=== PATIENT | male | born 1980 | race African-American/Black ===

== ENCOUNTER 2025-03-03 23:53 | Emergency (ER) | payer MEDICAID, OTHER ==
[~2025-03-03] VITALS: Ht 175.3 cm; Wt 79.1 kg
[2025-03-04 00:09] VITALS: BP 102/71; PULSE 85; RESP 17; TEMP 98.1; O2SAT 97
[2025-03-04] MEDS ORDERED: KETOROLAC TROMETH 60MG/2ML VIAL IM ONE (00:15)
[2025-03-04] MEDS ORDERED: HYDROcodone-ACET 10/325MG TAB PO ONE (00:15)
--- NOTE | 2025-03-04 00:54 | DVH ---
EXAMINATION: XY R RIB XRAY INDICATION: Trauma/fall COMPARISON: None TECHNIQUE: Frontal radiograph of the chest and radiographs of the right-sided ribs FINDINGS: No pulmonary consolidation, pleural effusion or pneumothorax. Normal cardiomediastinal silhouette. No displaced right rib fracture noted. IMPRESSION: No abnormality demonstrated.
--- NOTE | 2025-03-04 00:56 | ED.PDOC ---
History of Present Illness HPI Comments 44 y/o M presents with right chest-wall and rib pain s/p mechanical fall and injury. Patient endorses on developing pain after losing his balance and falling onto hard ground, while outside, this evening, which has not improved since. No lost of consciousness or additional injuries endorsed along with any significant cardiac history. Patient denies any shortness of breath, nausea, vomiting, or further associated symptoms. Vital signs were stable on arrival. Chief Complaint: Chest Pain Time Seen by MD: 23:50 Reviewed Notes: Nurses Notes, Medications, Allergies Allergies: Coded Allergies: NO KNOWN ALLERGIES (Unverified , 03/04/25) Information Source: Patient Mode of Arrival: Ambulatory Severity: Moderate Timing: Hours Duration: Since onset Prehospital treatment: None Past Medical History PAST MEDICAL HISTORY: Asthma Surgical History: Denies all surgeries Family History Family History: Reviewed,noncontributory to illness, No family hx of Cancer, No family hx of DM, No family hx of Heart mychal, No family hx of HTN, No family hx ofKidney mychal, No family hx of Liver mychal, No family hx of Lung mychal, No family hx of Stroke Social History Smoker: Non-Smoker Alcohol: Denies ETOH Use Drugs: Denies Drug Use Lives In: Home Constitutional: denies: chills, diaphoresis, fatigue, fever, malaise, sweats, weakness, others EENTM: denies: blurred vision, double vision, ear bleeding, ear discharge, ear drainage, ear pain, ear ringing, eye pain, eye redness, hearing loss, mouth pain, mouth swelling, nasal discharge, nose bleeding, nose congestion, nose pain, photophobia, tearing, throat pain, throat swelling, voice changes, others Respiratory: denies: cough, hemoptysis, orthopnea, SOB at rest, shortness of breath, SOB with excertion, stridor, wheezing, others Cardiovascular: denies: chest pain, dizzy spells, diaphoresis, Dyspnea on exertion, edema, irregular heart beat, left arm pain, lightheadedness, palpitations, PND, syncope, others Gastrointestinal: denies: abdomen distended, abdominal pain, blood streaked bowels, constipated, diarrhea, dysphagia, difficulty swallowing, hematemesis, melena, nausea, poor appetite, poor fluid intake, rectal bleeding, rectal pain, vomiting, others Genitourinary: denies: burning, dysuria, flank pain, frequency, hematuria, incontinence, penile discharge, penile sore, pain, testicle pain, testicle swelling, urgency, others Neurological: denies: dizziness, fainting, headache, left sided numbness, left sided weakness, numbness, paresthesia, pre-existing deficit, right sided numbness, right sided weakness, seizure, speech problems, tingling, tremors, weakness, others Musculoskeletal: reports: others (Right-sided rib pain); denies: back pain, gout, joint pain, joint swelling, muscle pain, muscle stiffness, neck pain Integumetry: denies: bruises, change in color, change in hair/nails, dryness, laceration, lesions, lumps, rash, wounds, others Allergic/Immunocompromised: denies: Difficulty Healing, Frequent Infections, Hives, Itching, others Hematologic/Lymphatic: denies: anemia, blood clots, easy bleeding, easy bruising, swollen glands, others Endocrine: denies: excessive hunger, excessive sweating, excessive thirst, excessive urination, flushing, intolerance to cold, intolerance to heat, unexplained weight gain, unexplained weight loss, others Psychiatric: denies: anxiety, bipolar disorder, depression, hopeless, panic disorder, schizophrenia, sleepless, suicidal, others All Other Systems: Reviewed and Negative (Comprehensive review of systems are negative unless otherwise stated in HPI) Physical Exam General Appearance: Moderate Distress (Moderate distress due to right-sided rib pain concerns.), Normal HEENT: Normal ENT Inspection, Pharynx Normal, TMs Normal Neck: Full Range of Motion, Non-Tender, Normal, Normal Inspection Respiratory: Lungs Clear, No Accessory Muscle Use, No Respiratory Distress, Normal Breath Sounds, Other (Diffuse right-sided tenderness to palpation between the mid axillary and midclavicular line between ribs three in eight. Patchy mild ecchymosis appreciated. No crepitus appreciated) Cardiovascular: No Edema, No JVD, No Murmur, No Gallop, Normal Peripheral Pulses, Regular Rate/Rhythm Breast Exam: Deferred Gastrointestinal: No Organomegaly, Non Tender, No Pulsatile Mass, Normal Bowel Sounds, Soft Genitalia: Deferred Pelvic: Deferred Rectal: Deferred Extremities: No calf tenderness, Normal capillary refill, Normal inspection, Normal range of motion, Non-tender, No pedal edema Neurologic: Alert, No Motor Deficits, Normal Affect, Normal Mood, No Sensory Deficits Cerebellar Function: Normal Reflexes: Normal Skin: Dry, Normal Color, Warm Lymphatic: No Adenopathy Was a procedure done? Was a procedure done?: No Differential Dx Considerations may include: musculoskeletal pain, contusions, fractures, dislocation, among others X-Ray, Labs, Meds, VS Vital Signs Date Time Temp Pulse Resp B/P (MAP) Pulse Ox O2 Delivery O2 Flow Rate FiO2 03/04/25 00:09 98.1 85 17 102/71 (81) 97 98.1 03/04/25 00:00 81 X-Ray, Labs, Meds, VS Comment All studies performed the ED were evaluated by me personally. Imaging studies of the right-sided ribs were unremarkable for any acute fractures. EKG revealed a sinus rhythm with a rate of 81. Probable normal early repolarization pattern noted. TX interval of 124 and QT interval of 361. Patient appears to have sustained a rib contusion. Advised patient utilize pain medication as needed as well as ice therapy. Time of 1ST Reevaluation: 01: Reevaluation 1ST: Improved Consultation: PCP Patient Education/Counseling: Diagnosis, Treatment, Need For Follow Up Family Education/Counseling: Diagnosis, Treatment, No Family Present SEPSIS Sepsis Screen Date sepsis recognized/suspect: Mar 04, 2025 Time Sepsis recognized/suspect: 0008 Recent Procedure: No On Antibiotic Therapy: No Respiratory Rate >20: No Heart Rate >90: No Temp<36 C (96.8 F) or >38.3 C: No SBP <90 or MAP <65 mmHG: No New Acute Mental Status Change: No Is the patient on CPAP, BIPAP,: No Physician Orders Electrocardigram (03/04/25 00:03) R Rib Xray (03/04/25 00:03) Vital Signs Date Time Temp Pulse Resp B/P (MAP) Pulse Ox O2 Delivery O2 Flow Rate FiO2 03/04/25 00:09 98.1 85 17 102/71 (81) 97 98.1 03/04/25 00:00 81 Departure 1 Departure Time of Disposition: 01:03 Impression: Primary Impression: Contusion of rib on right side Disposition: 01 HOME / SELF CARE / HOMELESS Condition: Stable Additional Instructions: Advised pain medication as needed. e-Prescriptions Hydrocodone-Acetaminophen (Hydrocodone Bitartrate/AC 5-325 mg) 1 Tab Tab 1 TAB PO Q6HP PRN, #20 TAB Prov: PATIENCE REEVES PAC 03/04/25 Ibuprofen Micronized (Ibuprofen) 800 Mg Tab 800 MG PO Q8HP PRN, #20 TAB Prov: PATIENCE REEVES PAC 03/04/25 Discharged With: Self, Friend Critical Care Note Critical Care Time?: No Stability Stability form required: No Heart Score Heart Score: Heart Score Response (Comments) Value History Slightly Suspicious 0 EKG Repolarization Disturb 1 Age <45 0 Risk Factors No known risk factors 0 Troponin Normal limit 0 Total 1 I personally scribed for PATIENCE REEVES PAC ([email or web address]) on 03/04/25 at 00:56. Electronically submitted by Jc George ([email or web address]). PATIENCE REEVES PAC Mar 04, 2025 00:56
[2025-03-04] MEDS ORDERED: HYDR-4902 PO (01:04)
[2025-03-04] MEDS ORDERED: IBUP-1455 PO (01:04)
--- NOTE | 2025-03-04 06:32 | ECG ---
[facility] Test Date: 2025-03-04 Test Time: 00:00:22 Pat Name: JAYME SRIVASTAVA Department: ED Room: Gender: M Wireless Network Engineer: : 1980 Requested By: PATIENCE REEVES Order Number: [id number] Reading MD: Rock Mccollum Measurements Intervals [place] Rate: 81 P: 20 [place]: 124 QRS: 42 QRSD: 84 T: 18 QT: 361 QTc: 419 Interpretive Statements Sinus rhythm ST elev, probable normal early repol pattern Electronically Signed On 03-07-2025 18:56:17 PDT by Rock Mccollum Please click the below link to view image of tracing.
== END 2025-03-04 01:57 | disposition home or self-care (01) ==
LOC: ER 23:53
DX: S20.211A Contusion of right front wall of thorax, initial encounter (principal); J45.909 Unspecified asthma, uncomplicated; W18.39XA Other fall on same level, initial encounter; Y93.89 Activity, other specified; Y92.89 Other specified places as the place of occurrence of the external cause; Y99.8 Other external cause status
CPT/HCPCS: 71101; 93005

== ENCOUNTER 2025-03-09 12:12 | Emergency (ER) | payer MEDICAID ==
[~2025-03-09] VITALS: Ht 175.3 cm; Wt 78.5 kg
[~2025-03-09 12:12] MED LIST: HYDR-4902 PO; IBUP-1455 PO
[2025-03-09 14:27] VITALS: BP 108/56; TEMP 98.1
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
[2025-03-09] MEDS: KETOROLAC TROMETH 60MG/2ML VIAL IM ONE (15:14)
[2025-03-09] MEDS ORDERED: NAPR-957 PO (15:17)
[2025-03-09 16:15] VITALS: PULSE 76; RESP 16; O2SAT 97
== END 2025-03-09 16:15 | disposition home or self-care (01) ==
LOC: ER 12:19
DX: S20.211A Contusion of right front wall of thorax, initial encounter (principal); S70.01XA Contusion of right hip, initial encounter; J45.909 Unspecified asthma, uncomplicated; V19.88XA Pedal cyclist (driver) (passenger) injured in other specified transport accidents, initial encounter; Y93.I9 Activity, other involving external motion; Y92.488 Other paved roadways as the place of occurrence of the external cause; Y99.8 Other external cause status
CPT/HCPCS: 96372; 99283; J1885